=== PATIENT | male | born 1990 | race Caucasian/White ===

== ENCOUNTER 2018-06-19 20:33 | Emergency (ER) | payer OTHER ==
[~2018-06-19] VITALS: Ht 182.9 cm; Wt 131.5 kg
[~2018-06-19 20:33] MED LIST: ALAVERT10 MG PO; AMITRIPTYLINE H25 M2 PO; AMITRIPTYLINE H25 M3 PO; ATIVAN1 MG PO; BENZTROPINE MES1 MG PO; BUSPAR30 MG PO; BUSPIRONE HCL7.5 MG PO; CARISOPRODOL 3350 MG PO; CLORAZEPATE D3.75 M1 PO; DEPAKOTE500 MG PO; GEODON40 MG; GEODON80 MG PO; HALDOL 0.5 MG0.5 MG PO; IBUPROFEN 600600 M1 PO; LEXAPRO 10 MG T10 M2 PO; LOXAPINE5 MG PO; MELATONIN10 M1 PO; METHOCARBAMOL500 M1 PO; MULTI-VITAMIN1 EAC5 PO; NEURONTIN600 MG PO; NEXIUM40 MG PO; OLEPTRO ER150 MG PO; PERCOCET PO; PROPRANOLOL 1010 M1 PO; RESTORIL30 MG PO; ROBAXIN500 MG PO; ROBINUL1 MG PO; ROXICODONE5 M1 PO; SERTRALINE HCL50 MG PO; THIORIDAZINE HC50 M1 PO; VALIUM10 MG PO; ZOLOFT100 MG PO; [UNRECOGNIZED DRUG - OTHER]; [UNRECOGNIZED DRUG - OTHER]
[2018-06-19] MEDS ORDERED: BREO ELLIPTA 11 EACH (20:47)
[2018-06-19] MEDS ORDERED: ZYPREXA 5 MG TAB5 MG (20:48)
[2018-06-19] MEDS ORDERED: FLOMAX0.4 MG (20:48)
[2018-06-19] MEDS ORDERED: DDAVP0.1 MG (20:48)
[2018-06-19] MEDS ORDERED: VALIUM5 MG (20:48)
[2018-06-19] MEDS ORDERED: ZANAFLEX4 MG (20:49)
[2018-06-19] MEDS ORDERED: TOPAMAX50 MG (20:49)
[2018-06-19] MEDS ORDERED: EFFEXOR XR75 MG PO (20:50)
[2018-06-19] MEDS ORDERED: ACCUNEB SO1.25 MG/1 (20:50)
[2018-06-19] MEDS ORDERED: PROAIR HFA8.5 GM (20:50)
[2018-06-19 22:36] VITALS: BP 115/81
== END 2018-06-19 22:37 | disposition home or self-care (01) ==
LOC: M.ERS 20:33
DX: M79.89 Other specified soft tissue disorders (principal); R23.8 Other skin changes; F31.9 Bipolar disorder, unspecified; G47.00 Insomnia, unspecified; F41.9 Anxiety disorder, unspecified; M54.2 Cervicalgia; G89.29 Other chronic pain; Z88.8 Allergy status to other drugs, medicaments and biological substances

== ENCOUNTER 2018-06-30 23:19 | Emergency (ER) | payer OTHER ==
[~2018-06-30] VITALS: Ht 182.9 cm; Wt 135.2 kg
[~2018-06-30 23:19] MED LIST changes: +ACCUNEB SO1.25 MG/1; +BREO ELLIPTA 11 EACH; +DDAVP0.1 MG; +EFFEXOR XR75 MG PO; +FLOMAX0.4 MG; +PROAIR HFA8.5 GM; +TOPAMAX50 MG; +VALIUM5 MG; +ZANAFLEX4 MG; +ZYPREXA 5 MG TAB5 MG
[2018-06-30] MEDS ORDERED: LASIX 20 MG TAB20 MG (23:34)
[2018-07-01 00:01] LABS: ABSOLUTE EOSINOPHILS 0.1 thou/uL (0.0-0.7); ABSOLUTE LYMPHOCYTES 2.8 thou/uL (0.8-5.3); ABSOLUTE MONOCYTES 0.7 thou/uL (0.0-1.2); ABSOLUTE NEUTROPHILS 2.8 thou/uL (1.6-8.1); BASOPHILS 0.7 %; EOSINOPHILS 1.2 %; HEMATOCRIT 38.9 % (42.0-52.0); LYMPHOCYTES 43.6 %; MCHC 33.3 g/dL (28.0-37.0); MPV 8.5 fl. (7.2-11.1); NUCLEATED RBCS 0 /100WBC; PLATELET COUNT* 203 thou/uL (150-400); POLYS 43.5 %; RBC 4.48 mil/uL (4.50-6.00); RDW-CV 14.9 % (10.5-14.5); WBC 6.4 thou/uL (4.0-11.0)
[2018-07-01 00:17] LABS: CALCIUM 9.1 mg/dL (8.5-10.1)
[2018-07-01 00:21] LABS: ALBUMIN 3.6 g/dL (3.4-5.0); TOTAL BILIRUBIN 0.2 mg/dL (<0.1-1.0); TOTAL PROTEIN 7.4 g/dL (6.4-8.2)
[2018-07-01 00:55] VITALS: BP 127/73
== END 2018-07-01 00:55 | disposition home or self-care (01) ==
LOC: M.ERS 23:19
PROVIDERS: Nurse Practitioner Family
DX: R60.0 Localized edema (principal); R23.8 Other skin changes; F31.9 Bipolar disorder, unspecified; F42.9 Obsessive-compulsive disorder, unspecified; F41.9 Anxiety disorder, unspecified; G89.29 Other chronic pain; M54.2 Cervicalgia; M54.9 Dorsalgia, unspecified; Z88.8 Allergy status to other drugs, medicaments and biological substances